=== PATIENT | female | born 1975 | race Caucasian/White ===

== ENCOUNTER → 2023-03-13 09:44 | Outpatient (CLI) | payer SELFPAY ==
--- NOTE | ~2023-03-13 | MR_ITS ---
MRI of the pelvis CLINICAL HISTORY: Enlarged uterus, abnormal uterine bleeding TECHNIQUE: Coronal SSFSE ARC, WATER:coronal LAVA-FLEX, Coronal 2D FIESTA FatSat, Axial SSFSE BH ARC, Axial 3D DualEcho BH, Axial SSFSE-IR, Axial DWI b=500, Axial 2D FIESTA FatSat, pre and dynamic postco ntrast Axial LAVA ARC, postcontrast Coronal In and Opposed phase LAVA FLEX. Following intravenous adm inistration of 10 cc MultiHance gadolinium, T1-weighted fat-sat imaging was performed in the axial an d coronal planes. FINDINGS: Uterus is anteverted. There is a 7.1 x 6.3 x 8.0 cm heterogeneous lobulated mass centrally in the uterus, most likely a large fibroid, probable intramural and partially submucosal in location. Probable 2.5 cm right ovarian cyst present. Left ovary appears unremarkable. Small amount of free fl uid present in the pelvis. Visual is bowel loops are unremarkable. Urinary bladder unremarkable. IMPRESSION: 7.1 x 6.3 x 8.0 cm dominant fibroid, probable intramural/partially submucosal in location. Small amount of free fluid. Reviewed, dictated and finalized at location . [employer]CH[employer]ICIAN IMPRESSION: 7.1 x 6.3 x 8.0 cm dominant fibroid, probable intramural/partially submucosal i n location. Small amount of free fluid.
== END ==
PROVIDERS: PCP Family Medicine; Visit Provider Obstetrics & Gynecology Gynecologic Oncology
DX: N85.2 Hypertrophy of uterus (principal); N93.9 Abnormal uterine and vaginal bleeding, unspecified; N92.0 Excessive and frequent menstruation with regular cycle; N89.8 Other specified noninflammatory disorders of vagina; D25.9 Leiomyoma of uterus, unspecified
CPT/HCPCS: 72197; A9577